=== PATIENT | male | born 1970 | race Caucasian/White ===

== ENCOUNTER 2020-12-18 03:16 | Emergency (ER) | payer OTHER ==
--- NOTE | 2020-12-18 03:31 | ED Physician Documentation ---
History of Present Illness - Stated complaint Stated Complaint: AB PX/SYNCOPE - History obtained from History obtained from: Patient, Family () - Additonal information Additional information: 50-year-old man without medical history, recently started on Viagra, presents with syncopal episode on the toilet late this evening at 2 AM. He took Viagra at 10 or 11 PM and went to bed then got up with lower abdominal cramping, went to the toilet and had tried to have a bowel movement then felt lightheaded, a wave of nausea and then passed out, hitting his right forehead. His heard the noise, came to the bathroom and was able to awaken him. He did not bite his tongue, was not incontinent of urine or stool, and had no tonic-clonic activity and return to baseline immediately. In the emergency department his symptoms have resolved. Denies diarrhea, fever. He did have a couple episodes nbnb n/v on the way here. Review of Systems Ten Systems: 10 systems reviewed and negative Constitutional: denies: Fever, Chills GI: reports: Nausea, Vomiting PD PAST MEDICAL HISTORY - Present Medications Home Medications: Ambulatory Orders Medication Instructions Recorded Confirmed Sildenafil Citrate [Viagra] 25 mg PO 12/18/20 - Allergies Allergies/Adverse Reactions: Allergies Allergy/AdvReac Type Severity Reaction Status Date / Time No Known Drug Allergies Allergy Verified 12/18/20 03:35 PD ED PE NORMAL - Vitals Vital signs reviewed: Yes - General General: Alert and oriented X 3, No acute distress, Well developed/nourished - HEENT HEENT: Atraumatic (Atraumatic with the exception of a 3 cm laceration above the right brow line.), PERRL, EOMI - Neck Neck: Supple, no meningeal sign, No bony TTP - Cardiac Cardiac: RRR - Respiratory Respiratory: No respiratory distress, Clear bilaterally - Abdomen Abdomen: Non tender, Non distended - Back Back: No spinal TTP - Derm Derm: Normal color, Warm and dry - Extremities Extremities: No deformity - Neuro Neuro: Alert and oriented X 3, fondant puff maker 2-12 intact, No motor deficit, No sensory deficit, Other (Normal cerebellar testing, strength and gait) - Psych Psych: Normal mood, Normal affect Results - Vitals Vitals: Vital Signs - 24 hr 12/18/20 12/18/20 12/18/20 03:28 04:04 04:19 Temperature 36.2 C L 36.7 C Heart Rate 65 75 Heart Rate [ 78 Sitting] Heart Rate [ 76 Supine] Respiratory 18 19 Rate Blood Pressure 137/87 H 121/84 H Blood Pressure 124/94 H [Sitting] Blood Pressure 121/84 H [Supine] O2 Saturation 99 98 Oxygen O2 Source Room air - EKG (time done) 0323 Rate: Rate (enter#) (65) Rhythm: NSR [place]: Normal Intervals: Normal ND QRS: Normal Ischemia: Normal ST segments Computer interpretation: Agree with computer - Labs Labs: Laboratory Tests 12/18/20 12/18/20 12/18/20 03:30 03:30 03:30 WBC 4.9 RBC 5.14 Hgb 15.0 Hct 45.8 MCV 89.1 MCH 29.2 MCHC 32.8 RDW 12.3 Plt Count 207 MPV 9.7 Neut # (Auto) 2.3 Lymph # (Auto) 2.0 [place] # (Auto) 0.4 Eos # (Auto) 0.1 Baso # (Auto) 0.0 Absolute Nucleated RBC 0.00 Nucleated RBC % 0.0 Sodium 141 Potassium 3.9 Chloride 104 Carbon Dioxide 26 Anion Gap 11.0 BUN 21 H Creatinine 0.8 Estimated GFR (MDRD) 103 Glucose 107 H POC Whole Bld Glucose Calcium 9.4 Total Bilirubin 1.1 H AST 29 ALT 27 Alkaline Phosphatase 48 Troponin I High Sens 2.9 Total Protein 7.4 Albumin 4.4 Globulin 3.0 Albumin/Globulin Ratio 1.5 Lipase 30 12/18/20 03:41 WBC RBC Hgb Hct MCV MCH MCHC RDW Plt Count MPV Neut # (Auto) Lymph # (Auto) [place] # (Auto) Eos # (Auto) Baso # (Auto) Absolute Nucleated RBC Nucleated RBC % Sodium Potassium Chloride Carbon Dioxide Anion Gap BUN Creatinine Estimated GFR (MDRD) Glucose POC Whole Bld Glucose 102 H Calcium Total Bilirubin AST ALT Alkaline Phosphatase Troponin I High Sens Total Protein Albumin Globulin Albumin/Globulin Ratio Lipase Procedures - Laceration (location) Face right Length in cm: 3 Wound type: Linear, Into subcut fat Neurovascular status: Sensory intact, Motor intact, Vascular intact Anesthesia: Lidocaine 1% with epi Wound preparation: Irrigated copiously NS Skin layer closure: Nylon, Interrupted, Size #-0 - enter number (6), Sutures - enter # (5) Other: Patient tolerated well, No complications, Neurovascular intact, Dressing applied, Tetanus booster given PD MEDICAL DECISION MAKING - ED course ED course: 50-year-old man, previously healthy non-smoker, recently started on Viagra, presents with syncopal episode on the toilet. He also had a couple episodes of nonbloody nonbilious nausea and vomiting. In the emergency department he is asymptomatic except when orthostatic vital signs were performed, during which she became acutely lightheaded and had to sit down. I discussed with the [facility] in regards to options to do head CT and also observation for echocardiogram, but they would prefer to drive back to [place] to follow-up with her primary doctor for referral. Risks and benefits discussed. Strict return precautions given. Laceration repaired without incident and they will follow-up for suture removal in 3 to 5 days. Departure - Departure Disposition: 01 Home, Self Care Clinical Impression: Syncope, Orthostatic dizziness, Laceration of face Condition: Good Instructions: ED Laceration All, Syncope Comments: You were seen in the emergency department for a fainting episode and for a cut to your right upper face. Your glucose and your EKG were normal. Your orthostatic vital signs were normal. Since you decided to follow-up outpatient, I am going to recommend that you call your doctor today to set up an appointment. You may need further testing, including echocardiogram and cardiac evaluation. Please return to the ED if you have any new or worsening symptoms or other concerns. Follow up for suture removal in 3-5 days.
[2020-12-18 03:41] LABS: BASOPHILS % (AUTO) 0.6 %; EOSINOPHILS # (AUTO) 0.1 10^3/uL (0.0-0.7); EOSINOPHILS % (AUTO) 1.4 %; HCT - HEMATOCRIT 45.8 % (42.0-52.0); LYMPHOCYTES % (AUTO) 41.9 %; MEAN CORPUSCULAR HEMOGLOBIN 29.2 pg (27.0-31.0); MEAN CORPUSCULAR HGB CONC 32.8 g/dL (32.0-36.0); MEAN CORPUSCULAR VOLUME 89.1 fL (80.0-94.0); MEAN PLATELET VOLUME 9.7 fL (7.4-11.4); MONOCYTES # (AUTO) 0.4 10^3/uL (0.0-1.0); MONOCYTES % (AUTO) 8.7 %; NEUTROPHILS # (AUTO) 2.3 10^3/uL (1.5-6.6); NEUTROPHILS % (AUTO) 47.2 %; PLT - PLATELET COUNT 207 10^3/uL (130-450); RED BLOOD COUNT 5.14 10^6/uL (4.70-6.10); RED CELL DISTRIBUTION WIDTH 12.3 % (12.0-15.0); WHITE BLOOD COUNT 4.9 x10^3/uL (4.8-10.8)
[2020-12-18 03:55] LABS: ALBUMIN 4.4 g/dL (3.2-5.5); ALBUMIN/GLOBULIN RATIO 1.5 (1.0-2.2); BILIRUBIN,TOTAL 1.1 mg/dL (0.2-1.0); CALCIUM 9.4 mg/dL (8.5-10.3); CREATININE 0.8 mg/dL (0.6-1.2); POTASSIUM 3.9 mmol/L (3.5-5.0); TOTAL PROTEIN 7.4 g/dL (6.7-8.2)
[2020-12-18] MEDS ORDERED: BACITRACIN ZINC OINT 1 PACKET TOP STA (04:01)
[2020-12-18] MEDS ORDERED: TETANUS/DIPHTHERIA/PERTUSSIS 0.5 ML SYRINGE IM ONE (04:01)
[2020-12-18 04:43] VITALS: BP 128/92
== END 2020-12-18 04:53 | disposition home or self-care (01) ==
LOC: ED 03:16
DX: R55 Syncope and collapse (principal); R42 Dizziness and giddiness; R11.2 Nausea with vomiting, unspecified; S01.81XA Laceration without foreign body of other part of head, initial encounter; W18.11XA Fall from or off toilet without subsequent striking against object, initial encounter; Y92.002 Bathroom of unspecified non-institutional (private) residence as the place of occurrence of the external cause; Z23 Encounter for immunization
CPT/HCPCS: 12013; 36415; 80053; 83690; 84484; 85025; 90471; 90715; 93005; 99284; A9270